=== PATIENT | female | born 1950 | race African-American/Black ===

== ENCOUNTER → 2018-05-11 | Day surgery (SDC) | payer OTHER ==
[~2018-05-11] MED LIST: IV RINGERS,LACTATED 1000ML 1,000 ML IV; LIDOCAINE 1% PF 2 ML VIAL. ID; LIDOCAINE 2% PF Vial for OR 5 ML VIAL.; MIDAZOLAM HCL/PF 2 MG/2 ML VIAL. IV; PROPOFOL 40 ML IV; fentaNYL PF VIAL 100 MCG/2 ML VIAL IV
[2018-05-11] MEDS: IV RINGERS,LACTATED 1000ML 1,000 ML IV ×2 (09:33)
== END | disposition home or self-care (01) ==
LOC: SURG 08:40
DX: K62.1 Rectal polyp (principal); K57.30 Diverticulosis of large intestine without perforation or abscess without bleeding; K44.9 Diaphragmatic hernia without obstruction or gangrene; E03.9 Hypothyroidism, unspecified; K21.9 Gastro-esophageal reflux disease without esophagitis; H40.9 Unspecified glaucoma; Z86.010 Personal history of colon polyps; F17.200 Nicotine dependence, unspecified, uncomplicated; Z90.710 Acquired absence of both cervix and uterus; M32.9 Systemic lupus erythematosus, unspecified; Z98.42 Cataract extraction status, left eye; Z96.1 Presence of intraocular lens; Z79.82 Long term (current) use of aspirin; Z79.899 Other long term (current) drug therapy
CPT/HCPCS: 43235; 45380; 88305; J2001; J2704

== ENCOUNTER → 2018-05-17 | Outpatient (CLI) | payer OTHER ==
[2018-05-11 10:47] VITALS: BP 121/68
[~2018-05-17] MED LIST changes: +ASPI-630 PO; -IV RINGERS,LACTATED 1000ML 1,000 ML IV; +LEVO125T5 PO; -LIDOCAINE 1% PF 2 ML VIAL. ID; -LIDOCAINE 2% PF Vial for OR 5 ML VIAL.; -MIDAZOLAM HCL/PF 2 MG/2 ML VIAL. IV; -PROPOFOL 40 ML IV; -fentaNYL PF VIAL 100 MCG/2 ML VIAL IV
--- NOTE | 2018-05-17 13:04 | RAD ---
EXAM: PA and lateral views of the chest DATE: 05/17/2018 12:00 AM INDICATION: SHORT OF BREATH, HISTORY OF SMOKING COMPARISON: No Prior FINDINGS: The heart is not enlarged. Aorta is mildly tortuous. Mediastinal and hilar contours are otherwise normal. Mild hyperexpansion of the lungs bilaterally. Calcified granuloma left mid lung. No lobar consolidation. No pleural effusion or pneumothorax. IMPRESSION: 1. No radiographic evidence for acute cardiopulmonary process. 2. Hyperexpansion of the lungs likely emphysematous change. Electronically signed by: Darinel Lea MD (05/17/2018 1:00 PM) [facility]
--- NOTE | 2018-05-18 16:24 | RAD ---
3d digital tomography [bilateral] History: Routine screening Technique: Bilateral 3d digital tomographic views were obtained. In addition, CAD - computer aided detection was utilized. Comparison: None. Findings: Breast Tissue Density D :The breast tissue is extremely dense, lowering the sensitivity of the examination. There are no suspicious masses, microcalcifications or areas of architectural distortion. Impression: No suspicious findings. Recommendation: In the absence of new clinical symptoms or change in physical exam, annual screening mammography is recommended. BI-RADS Category 1: Negative. The patient will receive a letter with the results in the mail. Your mammogram demonstrates that you have dense breast tissue, which could hide abnormalities, and if you have other risk factors for breast cancer that have been identified, you might benefit from supplemental screening tests that may be suggested by your ordering physician. Dense breast tissue, in and of itself, is a relatively common condition. This information is not provided to cause undue concern, but rather to raise your awareness and to promote discussion with your physician regarding the presence of other risk factors, in addition to dense breast tissue. A report of your mammography results will be sent to you and your physician. You should contact your physician if you have any questions or concerns regarding this report. A mammogram does not have 100% sensitivity and therefore a negative imaging study should not delay further work up of a suspicious abnormality. Patient information is entered into the [facility] reminder system using [employer] with a target due date for the next screening mammogram. The patient will receive a reminder. "Our facility is accredited by the [employer] Mammography Program." BI-RADS 1 -- negative findings (within normal)
== END | disposition home or self-care (01) ==
LOC: MAMMO 10:43
PROVIDERS: ATTEND Internal Medicine
DX: Z12.31 Encounter for screening mammogram for malignant neoplasm of breast (principal); R06.02 Shortness of breath; E03.9 Hypothyroidism, unspecified; K21.9 Gastro-esophageal reflux disease without esophagitis; Z87.891 Personal history of nicotine dependence
CPT/HCPCS: 71046; 77063; 77067

== ENCOUNTER → 2018-05-20 | Outpatient (CLI) | payer OTHER ==
[2018-05-11 10:47] VITALS: BP 121/68
[~2018-05-20] MED LIST changes: +CONTRAST GIVEN. MC PRN; +IOHEXOL 240 MG/ML 50ML VIAL. PO ONE; +IOHEXOL 300 MG/ML 100ML VIAL. IV ONE
--- NOTE | 2018-05-20 12:13 | RAD ---
CLINICAL HISTORY: 20 LB WEIGHT LOSS X 7 MONTHS COMPARISON: none TECHNIQUE: CT of the abdomen and pelvis following the administration of 75 mL of Omnipaque 300 intravenous contrast. Oral contrast was administered. Coronal and sagittal reformatted images were generated. PQRS compliance statement - One or more of the following individualized dose reduction techniques were utilized for this study: 1. Automated exposure control 2. Adjustment of the mA and/or kV according to patient size 3. Use of iterative reconstruction technique FINDINGS: Lung bases are clear. ABDOMEN AND PELVIS: No focal liver lesion. There is mild enlargement of the left hepatic lobe. Focal low-density at the falciform ligament may represent focal fatty infiltration. The liver measures 15 cm in length. Gallbladder is unremarkable. No intra or extrahepatic ductal dilatation. Spleen is unremarkable. Adrenal glands are normal. Pancreas is unremarkable. Symmetric nephrograms. Parapelvic cyst is suspected in the left upper pole. No hydronephrosis. The appendix is normal. Moderate colonic stool content. No evidence for bowel dilatation or obstruction. Oral contrast material is seen to the level of the transverse colon. Colonic diverticulosis without evidence of acute diverticulitis. Aorta is normal in caliber. No abdominal or pelvic ascites. The distended bladder is unremarkable. No abdominal or pelvic lymphadenopathy. Bones: Multilevel degenerative changes of the spine are seen most prominent at L4-5 and L5-S1. Small focus of gas appears to be within the epidural space, however this is likely from vacuum phenomenon at L4-5 and extension of the gas dorsally. IMPRESSION: No abdominal or pelvic lymphadenopathy. Focal fatty infiltration of the liver at the falciform ligament. Electronically signed by: Darinel Lea MD (05/20/2018 12:09 PM) [facility]
== END | disposition home or self-care (01) ==
LOC: CT 08:42
PROVIDERS: ATTEND Internal Medicine Gastroenterology
DX: K76.0 Fatty (change of) liver, not elsewhere classified (principal); K57.30 Diverticulosis of large intestine without perforation or abscess without bleeding
CPT/HCPCS: 74177; Q9966; Q9967

== ENCOUNTER → 2018-09-03 | Outpatient (CLI) | payer OTHER ==
[2018-05-11 10:47] VITALS: BP 121/68
[~2018-09-03] MED LIST changes: -IOHEXOL 240 MG/ML 50ML VIAL. PO ONE
--- NOTE | 2018-09-03 10:02 | RAD ---
PQRS Compliance Statement: One or more of the following individualized dose reduction techniques were utilized for this examination: 1. Automated exposure control 2. Adjustment of the mA and/or kV according to patient size 3. Use of iterative reconstruction technique CT NECK CHEST W/CONT Clinical Indication: ABNORMAL WEIGHT LOSS, SMOKER. Comparison: The abdomen and pelvis with contrast, May 20, 2018. TECHNIQUE: Helical CT imaging of the neck and of the chest is performed after 75 cc Omnipaque 300 IV contrast. Findings: Question asymmetric soft tissue fullness at the right base of the tongue. The epiglottis and aryepiglottic folds are normal. Piriform sinuses are symmetric. Tiny probable left intraparotid lymph node. Parotid glands otherwise symmetric. The submandibular and thyroid glands are symmetric. There is no cervical adenopathy. No obvious abnormality of vascular structures. Minimal calcification of the carotid bulbs. Degenerative spondylosis of the cervical spine is most advanced at C5/C6 and C6/C7. Multilevel facet hypertrophy. Calcified left hilar lymph nodes. No adenopathy in the chest. There are subcentimeter left axillary lymph nodes. The great vessels are normal caliber. Cardiac size normal, no pericardial effusion. There is no pleural effusion. The central airways are patent. There is moderate upper lobe centrilobular emphysema. There is probable scarring in the right lung apex, coronal image 47. There is a nonsolid opacity in the right upper lobe that could be due to scarring that measures on the order of 8 mm, image 36. Calcified granuloma left lower lobe. Stable left parapelvic cyst. The vertebral body marrow is heterogeneous. No compression fracture. IMPRESSION: 1. Question asymmetric soft tissue fullness at the right base of the tongue. Suggest correlation with direct visualization. 2. Subcentimeter nodular opacity in the right upper lobe could be due to scarring. Recommend CT chest follow-up in 6 months. 3. Moderate upper lobe centrilobular emphysema. Electronically signed by: Andrea Stack MD (09/03/2018 9:59 AM) [id number]
== END | disposition home or self-care (01) ==
LOC: CT 07:51
PROVIDERS: ATTEND Internal Medicine
DX: J43.2 Centrilobular emphysema (principal); N94.89 Other specified conditions associated with female genital organs and menstrual cycle; J84.10 Pulmonary fibrosis, unspecified; M47.892 Other spondylosis, cervical region
CPT/HCPCS: 70491; 71260; Q9967

== ENCOUNTER → 2018-12-03 | Outpatient (CLI) | payer OTHER ==
[2018-05-11 10:47] VITALS: BP 121/68
[~2018-12-03] MED LIST changes: -CONTRAST GIVEN. MC PRN; +IOHEXOL 240 MG/ML 50ML VIAL. PO ONE
--- NOTE | 2018-12-03 16:56 | RAD ---
CT study of chest and abdomen and pelvis with contrast Clinical indications: 20 pound weight loss over the past year. COMPARISON: Abdomen and pelvis CT dated May 20, 2018. TECHNIQUE: After IV infusion of 75 cc of Omnipaque 300, helical CT scanning of the chest and abdomen and pelvis was performed. GI contrast was administered per mouth. PQRS compliance Statement One or more of the following individualized dose reduction techniques were utilized for this study: 1. Automated exposure control 2. Adjustment of the mA and/or kV according to patient size 3. Use of iterative reconstruction technique CHEST CT: No enlarged thoracic lymphadenopathy is evident. No focal aneurysmal dilatation or dissection of thoracic aorta is seen. Heart size is normal and no pericardial effusion is seen. No consolidative lung infiltrate or lung mass is seen. However, there is a small groundglass nodular infiltrate within the lateral aspect of the right upper lobe seen on image 33 and series 2. This measures 8 mm. There is a calcified granuloma left lower lobe. Bilateral emphysema is seen. No pneumothorax or pleural effusion is seen. The proximal bronchial tree is patent. No lytic process is evident. IMPRESSION: 8 mm groundglass lung nodule. Recommend a follow-up noncontrast chest CT in 6-12 months as per Fleischner guidelines. Emphysema. No lung consolidation or lung mass is seen otherwise. ABDOMEN AND PELVIS CT: The liver and spleen and pancreas are normal. The gallbladder is normal and no extrahepatic biliary ductal dilatation is seen. No adrenal mass is seen. Central upper pole left renal cyst is seen which is unchanged in size. No hydronephrosis or hydroureter is seen on either side. Lobulation of the urinary bladder is seen posteriorly on the left side. Urinary bladder wall is smooth otherwise. The uterus is surgically absent. No enlarged ovary is evident. Sigmoid diverticulosis without diverticulitis is evident. No obstructive bowel pattern is evident. No free fluid or free air or mesenteric edema is seen. 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 This is unchanged. The caliber of the abdominal aorta at this level measures 2.4 cm. No enlarged abdominal or pelvic lymphadenopathy is evident. No lytic process is seen. IMPRESSION: No acute abnormality of the abdomen or pelvis. Electronically signed by: Sadiq Villegas MD (12/03/2018 4:52 PM) [facility]
== END | disposition home or self-care (01) ==
LOC: CT 08:47
PROVIDERS: ATTEND Internal Medicine Hematology & Oncology
DX: J43.8 Other emphysema (principal); J84.10 Pulmonary fibrosis, unspecified; N28.1 Cyst of kidney, acquired; K57.30 Diverticulosis of large intestine without perforation or abscess without bleeding; I71.4 Abdominal aortic aneurysm, without rupture; R91.1 Solitary pulmonary nodule; E03.9 Hypothyroidism, unspecified
CPT/HCPCS: 71260; 74177; Q9966; Q9967

== ENCOUNTER → 2019-08-25 | Outpatient (CLI) | payer OTHER ==
[2018-05-11 10:47] VITALS: BP 121/68
[~2019-08-25] MED LIST changes: -IOHEXOL 240 MG/ML 50ML VIAL. PO ONE; -IOHEXOL 300 MG/ML 100ML VIAL. IV ONE
--- NOTE | 2019-08-25 12:27 | RAD ---
CT of the chest without contrast 08/25/2019 INDICATION: Follow-up lung nodule. COMPARISON STUDY: CT of the chest December 03, 2018 TECHNIQUE: Multidetector CT imaging of the chest was performed without contrast. Findings: Heart size is normal. No pericardial effusion is identified. Limited noncontrast enhanced evaluation the mediastinum demonstrates scattered small lymph nodes. Small lymph nodes noted in the bilateral axilla and supraclavicular regions. No pneumothorax, pleural effusion, or new infiltrate is seen. Severe emphysematous changes are noted bilaterally. Calcified granulomas again noted in the left lower lobe. Somewhat ill-defined area of scarring are groundglass opacification seen in the apical right upper lobe. The stable appearance of somewhat irregular nodule in the right upper lobe along the minor fissure. This is perhaps best appreciated on sagittal image 84 on today's study, and sagittal image 50 on comparison exam. Upper abdomen demonstrates no acute changes. No acute osseous changes are seen. IMPRESSION: 1. Stable appearance of the nodular opacity in the inferior right upper lobe, and probable scarring in the right lung apex with respect to comparison study, when allowing for differences in technique. Recommend CT surveillance in one year. 2. Emphysematous changes CT DOSING PQRS STATEMENT: One or more of the following individualized dose reduction techniques were utilized for this examination: 1. Automated exposure control 2. Adjustment of the mA and/or kV according to patient size 3. Use of iterative reconstruction technique Electronically signed by: Sukhdev Jade MD (08/25/2019 12:24 PM) [id number]
== END | disposition home or self-care (01) ==
LOC: CT 10:41
PROVIDERS: ATTEND Internal Medicine
DX: J43.9 Emphysema, unspecified (principal); J84.10 Pulmonary fibrosis, unspecified; J98.4 Other disorders of lung; R91.8 Other nonspecific abnormal finding of lung field; Z79.899 Other long term (current) drug therapy
CPT/HCPCS: 71250